=== PATIENT | female | born 1960 | race Caucasian/White ===

== ENCOUNTER 2021-06-23 14:18 | Outpatient (RCR) | payer OTHER, SELFPAY ==
--- NOTE | 2021-06-29 13:30 | HP.OTFCE_ITS ---
Floor (Occasional 1-33% of Day): 15# Floor (Frequent 34-66% of Day): 8# Floor (Constant 67-100% of Day): NA Floor PDL: Sedentary-Light Knee (Occasional 1-33% of Day): 15# Knee (Frequent 34-66% of Day): 8# Knee (Constant 67-100% of Day): NA Knee PDL: Sedentary-Light Waist (Occasional 1-33% of Day): 15# Waist (Frequent 34-66% of Day): 8# Waist (Constant 67-100% of Day): NA Shoulder (Occasional 1-33% of Day): See below for comments Overhead (Occasional 1-33% of Day): see below for comments Overhead PDL: No Ability Comments: Full lift (floor to shoulder lift) right handed 10# only for sedentary physical demand level. Mid lift ( knuckle to shoulder ) 25# use of right UE only for light physical demand level. Low lift ( floor to knuckle) 35# use of right UE only for Light Medium physical demand level. one handed lift ability. with two handed lift pt able to lift 15# from floor, knee and waist levels for a sedentary light physical demand level Bending: Frequent Ability (34-66% of day) Squatting: Frequent Ability (34-66% of day) Kneeling: Occasional Ability (1-33% of day) Comments: with external support Reaching out: Occasional Ability (1-33% of day) Reaching up: Occasional Ability (1-33% of day) Sitting: Frequent Ability (34-66% of day) Walking: Frequent Ability (34-66% of day) Standing: Frequent Ability (34-66% of day) Duration Sedentary Sedentary Light Light Light Medium Medium Medium Heavy Very Heavy Heavy Occasional (0-33% of day) Frequent (34-66% of day) Constant (67-100% of day) 10 # Negligible Negligible 15 # 8 # Negligible 20 # 10# Negli. 35 # 18 # 7 # 50 # 25 # 10 # 75 # 100 # >100 # 38 # 50 # >50 # 15 # 20 # >20 # Weight:: 55.792 kg Hand Dominance: Right Medical History Including Restrictions: This 60 year old female states she was in good health until she suffered a fall 2013. Pt went to ER and had wrist sx with ORIF. pt states due to complications of plate and scar tissue she had plate removed in 2014. This included a left CTR. pt continued to have complications with limited ability and underwent another sx extensor tendon release to gain wrist flexion with fair results. pt underwent a further sx on volar side of wrist to remove scar tissue. pt continued to struggle with mobility and underwent further sx in 2020 to release tendons to gain finger and wrist ROM with fair - results. Pt reports left UE is used as assistive devices due to limited strength and inability to grasp different size objects. Diagnoses: left shoulder adhesive capsulitis. left wrist fx radius and ulna. contracture of left hand Symptoms: numbness & and tingling left wrist distal and shoots proximal to shoulder. limited ROM of wrist and digits. weakness. Pain Pain: Pt reports pain 4/10 left hand. pt takes naproxen 2 x a day Work History: Pt states she was last employed at [employer]. Pt states she worked there for 25 years. 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 This person had 5 computer screen she watched, answer radio and take calls at a fast pace. pt states her last day employment was 2019. pt states she is unbale to keep up with the pace of this job or typing and multi tasking requirements. Behavioral: pt was cooperative throughout assessment. ADLS: Pt lives in a ranch home with three entry steps with full flight of stairs to the basement. Pt does not have to go down in the basement. pt states her boyfriend has to assist with hair grooming, putty earrings or necklaces on. Pt states she does need assist with clasping Bra. Pt states she has modified her shower to include pump shampoo bottles as bottle squeeze and manipulation is poor. Pt needs assist with clipping her own nails. pt states she does cook but needs assist with cutting for meal prep and putting items and removing them from an over. pt states she does drive mostly one handed. pt states she can mtg the shopping the majority of the time. Boyfriend will assist or she does wear a wrist brace to add more support . ROM: left wrist 30/45. right wrist 75/75. right thumb MP 40. right thumb IP 40. right thumb CMC 5. left IF MCP 0/80 right 0/85 PIP -25/ 70 right 0/110 left DIP -15/65 right 0/80. left MF MCP 0/75 right 0/85 PIP -35/ 80 right 0/110 left DIP -15/60 right 0/80. left RF MCP 0/55 right 0/80 PIP -15/ 90 right 0/110 left DIP -15/60 right 0/85. left LF MCP +5/35 right 0/80 PIP -20/105 right 0/105 left DIP 0/60 right 0/90. left hand is 1.5 away from a composite fist. right hand forms tight composite fist. pt demo with all other UE ROM WNL. BLE ROM WNL. all other ROM WNL Strength: pt demo with shoulder MMT right 4+/5 left 4/5. 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 right digits 2.83 = Normal sensation. left 2.83 = Normal sensation. pt states she can feel things but texture of what she is touching feels off or different from her other hand. Fine Motor: 9-hole peg test is a standardized, quantitative assessment used to measure finger dexterity. right 19.99 sec. = 75%. left 27.87 sec. =20% Balance: no noted loss of balance noted during assessment. pt demo with normal - good + balance Bending: pt demonstrates the ability to bend forward 3/3, 10/10 and 10/10 rapidly. heart rate 77. pt can bend forward on a frequent ability. Squatting: pt demo the ability to squat 3/3, 10/10 and 10/10 rapidly. heart rate 94. pt can squat on a frequent ability Kneeling: pt demonstrated the ability to kneel with external support 3/3, 10/10 and 7/10 rapidly. pt demo muscle shaking and fatigue following 09/05 but forced herself to attempt /10 rapidly. pt can kneel on an occasional ability with external support. lifting Reaching out/up: pt demonstrated the ability to reach up/out 3/3, 10/10 and 10/10 rapidly. pt states she has a increase in burning tingling numb sensation of left UE from finger tips to about her elbow. pain staying 3-4/10. pt can reach up/out on an occasional ability Walking: no deficits walking. pt demo a good paced reciprocal gait pattern. pt ambulated 15 min with no deficits noted or report of discomfort or pain. pt can ambulate on a frequent ability Standing: no deficits standing- pt demo the ability to stand for 8 min with no apparent or expressed discomfort. pt can stand on a frequent ability Sitting: pt demo the ability to sit for 45 min with no apparent or reported discomfort. pt can sit on a frequent ability Climbing Stairs: pt demonstrated the ability to ascended and descended 10 steps with a reciprocal step pattern with use of one hand rails with good ability. No ability for climbing ladder due to weakness of left tester/lift trucker strength Floor Lift: pt demo the ability to lift 15# maximally with bilateral hands from floor level = sedentary light physical demand level. one handed lift 35# = light Medium physical demand level Knee Lift: pt demo the ability to lift 15# maximally with bilateral hands from knee level for sedentary light physical demand level. right handed only lift 25# = light physical demand level Waist Lift: pt demo the ability to lift 15# maximally with bilateral hands from waist level = Sedentary Light Physical demand level Shoulder Lift: pt demo single arm lift of 25# maximally at this level= light physical demand level Overhead Lift: Unable Carrying: one handed 25# for 40 feet with good ability Comments: Full lift (floor to shoulder lift) right handed 10# = Sedentary physical demand level. Mid lift ( knuckle to shoulder ) 25#= Light Physical demand level. Low lift ( floor to knuckle) 35#= Light Medium Physical Demand Level. one handed lift with right UE
--- NOTE | 2021-06-29 13:30 | HP.OTFCE.D ---
FCE D/C Summary - Discharge ARACELIS HUTSON was seen for a one time visit for an FCE on 06/23/21 and is discharged.
== END 2021-06-23 19:00 | disposition home or self-care (01) ==
LOC: OT 14:18
PROVIDERS: Referring Provider Orthopaedic Surgery; Visit Provider Orthopaedic Surgery
DX: M24.50 Contracture, unspecified joint (principal)
CPT/HCPCS: 97750